=== PATIENT | male | born 1970 | race Caucasian/White ===

== ENCOUNTER 2016-12-06 04:35 | Emergency (ER) | payer BC ==
[~2016-12-06] VITALS: Ht 175.3 cm; Wt 82.0 kg
[~2016-12-06 04:35] MED LIST: AZIT250T94 PO; HYDR-902 PO; IBUP-1542 PO
[2016-12-06 04:37] VITALS: Ht 175.3 cm; Wt 82.0 kg
[2016-12-06] MEDS ORDERED: ONDANSETRON 4 MG INJ IV STA (04:42)
[2016-12-06] MEDS ORDERED: SOD CHLORIDE 0.9% 1,000 ML IV STA (04:42)
[2016-12-06] MEDS ORDERED: KETOROLAC 30 MG INJ IV STA (04:42)
[2016-12-06] MEDS ORDERED: HYDROmorphONE 1 MG/ML SYG IV STA ×2 (04:43→05:32)
--- NOTE | 2016-12-06 05:07 | ERD ---
ER Documentation Chief Complaint Date/Time DATE: 12/06/16 TIME: 05:05 Chief Complaint right flank pain running down to testicles x 2 days HPI 46-year-old male with history of kidney stones comes in with right-sided flank pain that radiates to his right groin for the past 2 days. Patient states about 2 days ago it started as a dull ache on the right flank and is now sharp pain, moderate to severe, with nothing making it better or nothing making it worse and it goes to the right groin. He states that he has had intermittent hematuria as well, and nausea. He denies fevers or chills. Denies chest pain or shortness of breath. ROS All systems reviewed and are negative except as per history of present illness. Medications Home Meds Active Scripts Ondansetron (Ondansetron Odt) 4 Mg Tab.rapdis, 4 MG PO Q6H Y for NAUSEA AND/OR VOMITING, #10 TAB Prov:PERLITA CARMONA PA-C 12/06/16 Tamsulosin Hcl* (Flomax*) 0.4 Mg Cap.er.24h, 0.4 MG PO BID, #30 CAP Prov:PERLITA CARMONA PA-C 12/06/16 Ibuprofen* (Motrin*) 600 Mg Tab, 600 MG PO Q6, #30 TAB Prov:PERLITA CARMONA PA-C 12/06/16 Hydrocodone/Acetaminophen ([place] 10-325 Tablet) 1 Each Tablet, 1 TAB PO Q6H Y for PAIN, #15 TAB Prov:PERLITA CARMONA PA-C 12/06/16 Hydrocodone/Acetaminophen ([place] 10-325 Tablet) 1 Each Tablet, 1 TAB PO Q6H Y for PAIN, #7 TAB Prov:EVERTON BOYLE MD 11/01/15 Ibuprofen* (Motrin*) 600 Mg Tab, 600 MG PO Q6H Y for PAIN AND OR ELEVATED TEMP, #30 TAB Prov:EVERTON BOYLE MD 11/01/15 Azithromycin* (Zithromax*) 250 Mg Tablet, 250 MG PO .VedaPACK DIRECTED, #6 TAB TAKE 500 MG (2 TABS) THE FIRST DAY THEN 250 MG (1 TAB) DAYS 2-5 Prov:EVERTON BOYLE MD 11/01/15 Allergies Allergies: Coded Allergies: No Known Allergy (Unverified , 11/01/15) PMhx/Soc Medical and Surgical Hx: pt denies Surgical Hx History of Surgery: No Anesthesia Reaction: No Hx Neurological Disorder: No Hx Respiratory Disorders: No Hx Cardiac Disorders: Yes (HIGH CHOLESTEROL) Hx Psychiatric Problems: No Hx Miscellaneous Medical Probl: Yes (KIDNEY STONES, sinus allergies) Hx Alcohol Use: Yes (OCCASSIONALLY) Hx Substance Use: No Hx Tobacco Use: No Smoking Status: Never smoker Physical Exam Vitals Vital Signs Date Time Temp Pulse Resp B/P Pulse Ox O2 Delivery O2 Flow Rate FiO2 12/06/16 05:35 67 16 131/84 98 Room Air 12/06/16 04:37 98.2 66 20 131/84 100 Physical Exam General: Well-developed, well-nourished. The patient appears in no acute distress. HEENT: Head is normocephalic, atraumatic. No scleral icterus. Neck: Supple. Nontender. Lungs: Clear to auscultation. Normal air movement. Heart: Regular rate and rhythm. S1 and S2 are normal. No murmurs, gallops, or rubs. Abdomen: Soft, nontender, nondistended. Bowel sounds are normoactive. Extremities: No clubbing or cyanosis. Normal pulses. Moving extremities x 4. No weakness. Neurologic: Alert and oriented 3. No focal deficits. Skin: Normal turgor. No rash or lesions. Result Diagram: 12/06/1644812/06/16448 Results 24 hrs Laboratory Tests Test 12/06/16 04:49 White Blood Count 7.910^3/ul Red Blood Count 4.9510^6/ul Hemoglobin 15.2g/dl Hematocrit 44.6% Mean Corpuscular Volume 90.1fl Mean Corpuscular Hemoglobin 30.7pg Mean Corpuscular Hemoglobin Concent 34.1g/dl Red Cell Distribution Width 14.0% Platelet Count 65429^3/UL Mean Platelet Volume 11.9fl Neutrophils % 60.5% Lymphocytes % 25.6% Monocytes % 6.3% Eosinophils % 6.2% Basophils % 1.0% Nucleated Red Blood Cells % 0.0/100WBC Neutrophils # 4.810^3/ul Lymphocytes # 2.010^3/ul Monocytes # 0.510^3/ul Eosinophils # 0.510^3/ul Basophils # 0.110^3/ul Nucleated Red Blood Cells # 0.010^3/ul Urine Color HARINI Urine Clarity CLOUDY Urine pH 5.0 Urine Specific [place] 1.032 Urine Ketones NEGATIVEmg/dL Urine Nitrite NEGATIVEmg/dL Urine Bilirubin NEGATIVEmg/dL Urine Urobilinogen NEGATIVEmg/dL Urine Leukocyte Esterase NEGATIVELeu/ul Urine Microscopic RBC > 182/HPF Urine Microscopic WBC 0/HPF Urine Amorphous Crystals FEW/HPF Urine Mucus MANY/HPF Urine Hemoglobin 3+mg/dL Urine Glucose NEGATIVEmg/dL Urine Total Protein 2+mg/dl Sodium Level 143mmol/L Potassium Level 3.6mmol/L Chloride Level 105mmol/L Carbon Dioxide Level 29mmol/L Anion Gap 13 Blood Urea Nitrogen 14mg/dl Creatinine 1.24mg/dl Glucose Level 128mg/dl Calcium Level 9.4mg/dl Total Bilirubin 0.2mg/dl Direct Bilirubin 0.00mg/dl Indirect Bilirubin 0.2mg/dl Aspartate Amino Transf (AST/SGOT) 31IU/L Alanine Aminotransferase (ALT/SGPT) 47IU/L Alkaline Phosphatase 86IU/L Total Protein 8.8g/dl Albumin 4.6g/dl Globulin 4.20g/dl Albumin/Globulin Ratio 1.09 Lipase 173U/L Current Medications Medications (Trade) Dose Ordered Sig/Frank Route PRN Reason Start Time Stop Time Status Last Admin Dose Admin Sodium Chloride (NS) 1,000 ml @ 1,000 mls/hr Q1H STAT IV 12/06/16 04:42 12/06/16 05:41 DC 12/06/16 04:52 Ondansetron HCl (Zofran Inj) 4 mg ONCE STAT IV 12/06/16 04:42 12/06/16 04:44 DC 12/06/16 04:53 Ketorolac Tromethamine (Toradol) 30 mg ONCE STAT IV 12/06/16 04:42 12/06/16 04:44 DC 12/06/16 04:52 Hydromorphone HCl (Dilaudid) 1 mg ONCE STAT IV 12/06/16 04:43 12/06/16 04:44 DC 12/06/16 04:53 Hydromorphone HCl (Dilaudid) 1 mg ONCE STAT IV 12/06/16 05:32 12/06/16 05:34 DC 12/06/16 05:36 DIAGNOSTIC IMAGING REPORT Patient: NEGRA ELDER DOB: 1970 Age: 46 Sex: M MR #: [id number] DOS: 12/06/16 0442 Ordering MD: PERLITA CARMONA PA-C Location: [facility] Room/Bed: PROCEDURE: CT of the abdomen and pelvis without contrast CLINICAL INDICATION: Right flank pain. Urolithiasis.. TECHNIQUE: Spiral CT images through the abdomen and pelvis without the use of oral and without the use of intravenous contrast. The administered radiation dose is CTDI 14.47 and DLP 886.91. One or more of the following dose reduction techniques were used: automated exposure control, adjustment of the mA and/or kV according to patient size, or use of iterative reconstruction technique. COMPARISON: 11/12/2013 FINDINGS: The study is limited by lack of intravenous contrast. Lower thorax: Slight dependent atalectasis of the lung bases is seen.. Liver: Tiny probable hepatic cyst is seen.. Biliary: The gallbladder is unremarkable.. No biliary ductal dilatation is seen. Pancreas: Unremarkable. No focal mass or inflammatory process. Spleen: The spleen is unremarkable in appearance Adrenal glands: Unremarkable in appearance. No focal nodule.. Genitourinary: Multiple tiny nonobstructing bilateral renal calyceal stones are seen. There is moderate right hydronephrosis and hydroureter to the level of a 3 -4 mm stone in the mid to distal ureter at the level of the upper sacrum. No other ureter stones are seen and no stones are seen in the urinary bladder.. The bladder is unremarkable in appearance.. Gastrointestinal Tract: There is no evidence for bowel obstruction, free air, or abscess. The appendix is unremarkable in appearance. Lymph nodes: No adenopathy is seen... Vascular structures: The aorta and mesenteric vessels are unremarkable.. Peritoneal cavity: Unremarkable mesentery and peritoneum.. No mass, edema, or ascites. Reproductive Organs: Normal size prostate with a tiny calcification.. Right greater than left fat-containing inguinal hernias are seen. Musculoskeletal: Minimal degenerative change of the spine.. IMPRESSION: 3 a 4 mm stone in the right mid to distal ureter at the level of the upper sacrum with moderate right hydronephrosis and hydroureter. Additional tiny nonobstructing bilateral renal stones are seen.. RPTAT: [facility] Norma Winters, Physician Date Time Electronically viewed and signed by Norma Winters Physician on 12/06/2016 05 :29 LE/ Procedures/MDM Course: Patient came in with significant flank pain, patient had a large bore IV placed , he was given Toradol 30 mg, Zofran 4 mg, Dilaudid 1 mg IV and a fluid bolus of normal saline 1 L. Recheck of his pain, approximately 40 minutes later the patient states that he still feels as if he is in the same pain, he was then given a repeat dose of Dilaudid 1 mg IV. Medical decision makin-year-old male presents with a 3-4 ureteral stone on the right side, also multiple nonobstructing renal stones. Patient's pain is most consistent with colic from the stone. He does not have any history of fever, leukocytosis or signs of septic kidney stone or renal insufficiency or acute kidney injury. Patient's pain was controlled in the emergency department with pain medication here, he will be advised to follow-up with urology outpatient. Departure Diagnosis: Primary Impression: Ureteral stone Condition: PERLITA Rawls PA-C Dec 06, 2016 05:07
[2016-12-06 05:25] LABS: BASOPHIL # 0.1 10^3/ul (0.0-0.1); EOSINOPHILS # 0.5 10^3/ul (0.0-0.5); EOSINOPHILS % 6.2 % (0.0-7.0); HEMATOCRIT 44.6 % (42.0-52.0); HEMOGLOBIN 15.2 g/dl (14.0-18.0); LYMPHOCYTES % 25.6 % (15.0-51.0); MEAN CORPUSCULAR HEMOGLOBIN 30.7 pg (29.0-33.0); MEAN CORPUSCULAR HGB CONC 34.1 g/dl (32.0-37.0); MEAN CORPUSCULAR VOLUME 90.1 fl (82.0-101.0); MEAN PLATELET VOLUME 11.9 fl (7.4-10.4); MONOCYTE # 0.5 10^3/ul (0.3-0.9); MONOCYTES % 6.3 % (0.0-11.0); NEUTROPHIL # 4.8 10^3/ul (1.6-7.5); NEUTROPHILS % 60.5 % (39.0-77.0); PLATELET COUNT 206 10^3/UL (140-415); RED BLOOD COUNT 4.95 10^6/ul (4.70-6.10); WHITE BLOOD COUNT 7.9 10^3/ul (4.8-10.8)
--- NOTE | 2016-12-06 05:29 | RADRPT ---
PROCEDURE: CT of the abdomen and pelvis without contrast CLINICAL INDICATION: Right flank pain. Urolithiasis.. TECHNIQUE: Spiral CT images through the abdomen and pelvis without the use of oral and without the use of intravenous contrast. The administered radiation dose is CTDI 14.47 and DLP 886.91. One or more of the following dose reduction techniques were used: automated exposure control, adjustment of the mA and/or kV according to patient size, or use of iterative reconstruction technique. COMPARISON: 11/12/2013 FINDINGS: The study is limited by lack of intravenous contrast. Lower thorax: Slight dependent atalectasis of the lung bases is seen.. Liver: Tiny probable hepatic cyst is seen.. Biliary: The gallbladder is unremarkable.. No biliary ductal dilatation is seen. Pancreas: Unremarkable. No focal mass or inflammatory process. Spleen: The spleen is unremarkable in appearance Adrenal glands: Unremarkable in appearance. No focal nodule.. Genitourinary: Multiple tiny nonobstructing bilateral renal calyceal stones are seen. There is moder ate right hydronephrosis and hydroureter to the level of a 3-4 mm stone in the mid to distal ureter at the level of the upper sacrum. No other ureter stones are seen and no stones are seen in the urin harini bladder.. The bladder is unremarkable in appearance.. Gastrointestinal Tract: There is no evidence for bowel obstruction, free air, or abscess. The appen chito is unremarkable in appearance. Lymph nodes: No adenopathy is seen... Vascular structures: The aorta and mesenteric vessels are unremarkable.. Peritoneal cavity: Unremarkable mesentery and peritoneum.. No mass, edema, or ascites. Reproductive Organs: Normal size prostate with a tiny calcification.. Right greater than left fat-co ntaining inguinal hernias are seen. Musculoskeletal: Minimal degenerative change of the spine.. IMPRESSION: 3 a 4 mm stone in the right mid to distal ureter at the level of the upper sacrum with moderate righ t hydronephrosis and hydroureter. Additional tiny nonobstructing bilateral renal stones are seen.. RPTAT: [facility] Physician Zac Date Time Electronically viewed and signed by Norma Winters Physician on 12/06/2016 05:29 ELLA
[2016-12-06 05:35] VITALS: BP 131/84; PULSE 67; RESP 16
[2016-12-06 05:42] LABS: ALBUMIN 4.6 g/dl (3.3-4.9); ALBUMIN/GLOBULIN RATIO 1.09; BILIRUBIN,INDIRECT 0.2 mg/dl (0-1.1); BILIRUBIN,TOTAL 0.2 mg/dl (0.2-1.3); CALCIUM 9.4 mg/dl (8.4-10.2); CREATININE 1.24 mg/dl (0.61-1.24); POTASSIUM 3.6 mmol/L (3.5-5.1); TOTAL PROTEIN 8.8 g/dl (6.1-8.1)
[2016-12-06 05:53] LABS: ADD UMIC YES; UR AMORPHOUS CRYSTAL FEW /HPF (NONE SEEN); UR ASCORBIC ACID NEGATIVE (NEGATIVE); UR BILIRUBIN (Dip) NEGATIVE (NEGATIVE); UR BLOOD (Dip) 3+ mg/dL (NEGATIVE); UR CLARITY CLOUDY (CLEAR); UR COLOR AMBER (YELLOW); UR GLUCOSE (Dip) NEGATIVE (NEGATIVE); UR KETONES (Dip) NEGATIVE (NEGATIVE); UR LEUKOCYTE ESTERASE (Dip) NEGATIVE Leu/ul (NEGATIVE); UR MUCUS MANY /HPF (NONE SEEN); UR NITRITE (Dip) NEGATIVE (NEGATIVE); UR RBC > 182 /HPF (0-5); UR SPECIFIC GRAVITY (Dip) 1.032 (1.003-1.030); UR TOTAL PROTEIN (Dip) 2+ mg/dl (NEGATIVE); UR UROBILINOGEN (Dip) NEGATIVE (NEGATIVE)
[2016-12-06] MEDS ORDERED: HYDR-902 PO (05:55)
[2016-12-06] MEDS ORDERED: ONDA4TAB14 PO (05:55)
[2016-12-06] MEDS ORDERED: TAMS-14 PO (05:55)
[2016-12-06] MEDS ORDERED: IBUP-1542 PO (05:55)
== END 2016-12-06 06:07 | disposition home or self-care (01) ==
LOC: FTE 04:35
DX: N20.1 Calculus of ureter (principal)
CPT/HCPCS: 36415; 74176; 80053; 81001; 83690; 85025; 96374; 96375; 96376; 99285; J1170; J1885; J2405; J7030

== ENCOUNTER → 2016-12-20 | Outpatient (CLI) | payer BC ==
[~2016-12-20] MED LIST changes: +ONDA4TAB14 PO; +TAMS-14 PO
== END | disposition home or self-care (01) ==
LOC: LAB 08:16
PROVIDERS: ATTEND Internal Medicine
DX: N20.0 Calculus of kidney (principal)

== ENCOUNTER → 2017-01-17 | Outpatient (CLI) | payer BC ==
[2017-01-17 08:51] LABS: BASOPHILS % 0.7 % (0.0-2.0); EOSINOPHILS # 0.3 10^3/ul (0.0-0.5); EOSINOPHILS % 5.8 % (0.0-7.0); HEMATOCRIT 41.4 % (42.0-52.0); HEMOGLOBIN 14.6 g/dl (14.0-18.0); LYMPHOCYTES # 1.6 10^3/ul (0.8-2.9); LYMPHOCYTES % 27.1 % (15.0-51.0); MEAN CORPUSCULAR HEMOGLOBIN 30.5 pg (29.0-33.0); MEAN CORPUSCULAR HGB CONC 35.3 g/dl (32.0-37.0); MEAN CORPUSCULAR VOLUME 86.4 fl (82.0-101.0); MEAN PLATELET VOLUME 11.9 fl (7.4-10.4); MONOCYTE # 0.4 10^3/ul (0.3-0.9); MONOCYTES % 7.4 % (0.0-11.0); NEUTROPHIL # 3.4 10^3/ul (1.6-7.5); NEUTROPHILS % 58.6 % (39.0-77.0); PLATELET COUNT 184 10^3/UL (140-415); RED BLOOD COUNT 4.79 10^6/ul (4.70-6.10); RED CELL DISTRIBUTION WIDTH 13.2 % (11.5-14.5); WHITE BLOOD COUNT 5.7 10^3/ul (4.8-10.8)
[2017-01-17 08:52] LABS: ADD UMIC NO; UR ASCORBIC ACID NEGATIVE (NEGATIVE); UR BILIRUBIN (Dip) NEGATIVE (NEGATIVE); UR BLOOD (Dip) NEGATIVE (NEGATIVE); UR CLARITY CLEAR (CLEAR); UR COLOR YELLOW (YELLOW); UR GLUCOSE (Dip) NEGATIVE (NEGATIVE); UR KETONES (Dip) NEGATIVE (NEGATIVE); UR LEUKOCYTE ESTERASE (Dip) NEGATIVE Leu/ul (NEGATIVE); UR NITRITE (Dip) NEGATIVE (NEGATIVE); UR SPECIFIC GRAVITY (Dip) 1.019 (1.003-1.030); UR TOTAL PROTEIN (Dip) NEGATIVE (NEGATIVE); UR UROBILINOGEN (Dip) NEGATIVE (NEGATIVE)
[2017-01-17 09:24] LABS: ALBUMIN 4.4 g/dl (3.3-4.9); ALBUMIN/GLOBULIN RATIO 1.12; BILIRUBIN,INDIRECT 0.6 mg/dl (0-1.1); BILIRUBIN,TOTAL 0.6 mg/dl (0.2-1.3); CALCIUM 9.3 mg/dl (8.4-10.2); CREATININE 0.92 mg/dl (0.61-1.24); POTASSIUM 3.7 mmol/L (3.5-5.1); TOTAL PROTEIN 8.3 g/dl (6.1-8.1)
[2017-01-17 09:52] LABS: PROSTATE SPECIFIC ANTIGEN 0.9 ng/ml (0.0-4.0); THYROID STIMULATING HORMONE 0.979 MIU/L (0.465-4.680)
== END | disposition home or self-care (01) ==
LOC: LAB 07:52
PROVIDERS: ATTEND Internal Medicine
DX: N20.0 Calculus of kidney (principal)
CPT/HCPCS: 80053; 80061; 81003; 84153; 84154; 84443; 85025

== ENCOUNTER 2017-03-15 16:28 | Emergency (ER) | END 2017-03-15 18:59 | disposition home or self-care (01) ==

== ENCOUNTER 2017-03-18 10:55 | Emergency (ER) | END 2017-03-18 12:27 | disposition home or self-care (01) ==

== ENCOUNTER → 2017-08-20 | Outpatient (CLI) | END | disposition home or self-care (01) ==

== ENCOUNTER 2017-12-18 15:25 | Emergency (ER) | END 2017-12-18 16:45 | disposition home or self-care (01) ==

== ENCOUNTER → 2017-12-24 | Outpatient (CLI) | END | disposition home or self-care (01) ==

== ENCOUNTER → 2018-10-19 | Outpatient (CLI) | payer BC ==
[~2018-10-19] MED LIST changes: +AZIT250T PO; -AZIT250T94 PO; +CEPH-443 PO; +HYDR-3980 PO; +HYDR-4011 PO; -HYDR-902 PO
== END | disposition home or self-care (01) ==
LOC: LAB 11:24
PROVIDERS: ATTEND Internal Medicine
DX: R10.9 Unspecified abdominal pain (principal)
CPT/HCPCS: 81003